=== PATIENT | female | born 1955 | race Hispanic/Latino ===

== ENCOUNTER → 2018-02-18 | Outpatient (CLI) | payer OTHER ==
[~2018-02-18] MED LIST: CHOL-4 PO; LORA10CA9 PO; NAPR-1023 PO
== END | disposition home or self-care (01) ==
LOC: OIH 13:06
PROVIDERS: ATTEND Internal Medicine
DX: Z13.6 Encounter for screening for cardiovascular disorders (principal)
CPT/HCPCS: 75571